=== PATIENT | female | born 1985 ===

== ENCOUNTER 2016-12-31 09:09 | Emergency (ER) | payer OTHER ==
[2016-12-31 09:38] VITALS: BMI 23.9
--- NOTE | 2016-12-31 09:50 | C.PDOC ---
History Of Present Illness 31 y/o female presents to ED with complaints of right posterior headache for 5 days and new onset right forehead itchy rash for 4 days. Patient also complaints of swelling to area of headache. Patient reports history of Chicken pox and denies fever, chills, vision loss, dizziness or any other complaints at this time. R POST SHANKS X 5 DAYS, NEW ONSET R FOREHEAD RASH X 4 DAYS. CO SWELLING TO AREA OF HEADACHE. +ITCH HO PRIOR CHICKEN POX. NO FEVER, VISION LOSS. EXAM NAD NONTOXIC HEENT NO PHOTOPHOBIA. +MILD SCALP TEND R LOWER PARIETAL SCALP. SKIN +LESIONS C/W ZOSTER R UPPER FOREHEAD. NO SCALP LESIONS. NEURO INTACT Time Seen by Provider: 12/31/16 09:45 Chief Complaint (Nursing): Headache History Per: Patient History/Exam Limitations: no limitations Onset/Duration Of Symptoms: Days Current Symptoms Are (Timing): Still Present Quality: "Pain" Past Medical History Reviewed: Historical Data, Nursing Documentation, Vital Signs Vital Signs: Last Vital Signs Temp 98 F 12/31/16 09:41 Pulse 72 12/31/16 09:41 Resp 18 12/31/16 09:41 BP 108/72 12/31/16 09:41 Pulse Ox 100 12/31/16 09:41 Family History: States: No Known Family Hx - Social History Hx Alcohol Use: No Hx Substance Use: No - Immunization History Hx Tetanus Toxoid Vaccination: No Hx Influenza Vaccination: No Hx Pneumococcal Vaccination: No Review Of Systems Except As Marked, All Systems Reviewed And Found Negative. Constitutional: Negative for: Fever, Chills Eyes: Negative for: Vision Change Gastrointestinal: Negative for: Nausea, Vomiting Musculoskeletal: Negative for: Neck Pain Skin: Positive for: Rash Neurological: Positive for: Headache. Negative for: Dizziness Physical Exam - Physical Exam Appears: Non-toxic, No Acute Distress Skin: Warm, Rash, Other (Lesions complimentary with Zoster on right upper forehead, No scalp lesions) Head: Tenderness (Mild scalp and Right lower parietal scalp) Eye(s): bilateral: Normal Inspection, PERRL, EOMI Ear(s): Bilateral: Normal Nose: Normal Oral Mucosa: Moist Throat: Normal, No Erythema Neck: Normal ROM, Supple Neurological/Psych: Oriented x3, Normal Speech, Normal Cognition, Normal Motor, Normal Sensation Gait: Steady ED Course And Treatment O2 Sat by Pulse Oximetry: 100 (RA) Pulse Ox Interpretation: Normal Disposition Counseled Patient/Family Regarding: Diagnosis, Need For Followup, Rx Given - Disposition Referrals: Clinic,Med Surg [Primary Care Provider] - Disposition: HOME/ ROUTINE Disposition Time: 09:52 Condition: IMPROVED Prescriptions: Acetaminophen [Tylenol Extra Strength] 2 tab PO Q6 #30 tablet Acyclovir [Zovirax] 800 mg PO 5XD #35 tab DiphenhydrAMINE [Benadryl] 50 mg PO TID PRN #30 cap PRN Reason: Itching / Pruritus Ibuprofen [Motrin] 600 mg PO Q6 #30 tab Instructions: Shingles (ED) Forms: [employer] (Portuguese) Print Language: EQUATORIAL GUINEAN - Clinical Impression Clinical Impression: Headache, Zoster - Scribe Statement The provider has reviewed the documentation as recorded by the Jane Bailey All medical record entries made by the Jane were at my direction and personally dictated by me. I have reviewed the chart and agree that the record accurately reflects my personal performance of the history, physical exam, medical decision making, and the department course for this patient. I have also personally directed, reviewed, and agree with the discharge instructions and disposition.
[2016-12-31 10:06] VITALS: BP 108/72; PULSE 72; RESP 18; TEMP 98; O2SAT 100
== END 2016-12-31 10:07 | disposition home or self-care (01) ==
LOC: SUPCPDRO 09:09 → C.ER 09:09
DX: B02.9 Zoster without complications (principal); R51 Headache